=== PATIENT | male | born 1985 | race Caucasian/White ===

== ENCOUNTER 2018-11-25 16:23 | Emergency (ER) | payer MEDICARE, OTHER ==
[~2018-11-25] VITALS: Ht 185.4 cm; Wt 86.2 kg
[~2018-11-25 16:23] MED LIST: ALBU90OI INH; Augmentin 875-1 EACH PO; CITA20 PO; Colace100 MG PO; ERYT1OIN LEFTEYE; Inderal 20 mg T20 MG PO; LISI5 PO; LOVA20 PO; METO25ER PO; Monodox100 MG PO; OMEP40CA12 PO; Preparation H C26 GM RC; Prozac40 MG PO; RANI150 PO; SPACE CHAMBER1 EACH MC; SUCR1 PO; Zofran4 MG PO
[2018-11-25 18:00] LABS: Calcium, Ionized (POC) 1.22 mmol/L (1.10-1.46); Chloride (POC) 100 mmol/L (98-108); Creatinine (POC) 0.9 mg/dL (0.8-1.3); Glucose (ISTAT POC) 98 mg/dL (70-99); Hemoglobin (POC) 15.6 g/dL (13.5-17.5); Potassium (POC) 3.9 mmol/L (3.5-5.5); Sodium (POC) 139 mmol/L (135-148); Total CO2 (POC) 28 mmol/L (21-32)
[2018-11-25] MEDS ORDERED: KETO10 PO (18:43)
[2018-11-25] MEDS ORDERED: ONDA4ODT MM (18:43)
== END 2018-11-25 19:00 | disposition home or self-care (01) ==
LOC: ER 16:23
PROVIDERS: Physician Assistant
DX: R51 Headache (principal); I10 Essential (primary) hypertension; K21.9 Gastro-esophageal reflux disease without esophagitis; F90.9 Attention-deficit hyperactivity disorder, unspecified type; E78.5 Hyperlipidemia, unspecified; Z88.8 Allergy status to other drugs, medicaments and biological substances; Z88.2 Allergy status to sulfonamides; Z79.899 Other long term (current) drug therapy
CPT/HCPCS: 36415; 80047; 82947; 85014; 96372; 99283-25; J1885

== ENCOUNTER 2020-11-05 18:13 | Emergency (ER) | payer OTHER ==
[~2020-11-05] VITALS: Ht 185.4 cm; Wt 79.4 kg
[~2020-11-05 18:13] MED LIST changes: +KETO10 PO; +ONDA4ODT MM
[2020-11-05] MEDS ORDERED: ONDA4ODT MM (19:51)
== END 2020-11-05 19:55 | disposition home or self-care (01) ==
LOC: ER 18:13
DX: U07.1 COVID-19 (principal); R11.0 Nausea; I10 Essential (primary) hypertension; E78.5 Hyperlipidemia, unspecified; Z88.8 Allergy status to other drugs, medicaments and biological substances; Z88.2 Allergy status to sulfonamides; Z79.899 Other long term (current) drug therapy
CPT/HCPCS: 99282

== ENCOUNTER 2021-10-31 16:45 | Emergency (ER) | payer BC, OTHER ==
[~2021-10-31] VITALS: Ht 185.4 cm; Wt 81.7 kg
[2021-10-31 18:00] LABS: BASOPHILS ABSOLUTE AUTO 0.06 K/mm3 (0.00-0.23); BASOPHILS PERCENT AUTO 1 % (0-2); EOSINOPHILS ABSOLUTE AUTO 0.08 K/mm3 (0.00-0.68); EOSINOPHILS PERCENT AUTO 1 % (0-6); Hematocrit 46.8 % (37.0-53.0); Hemoglobin 15.8 g/dL (13.5-17.5); IMMATURE GRAN ABSOLUTE AUTO 0.08 K/mm3 (0.00-0.10); IMMATURE GRAN PERCENT AUTO 1 % (0-1); LYMPHOCYTES PERCENT AUTO 9 % (21-46); MONOCYTES ABSOLUTE AUTO 0.56 K/mm3 (0.16-1.47); MONOCYTES PERCENT AUTO 5 % (4-13); Mean Corpuscular HGB 28.7 pg (26.0-34.0); Mean Corpuscular HGB Conc 33.8 g/dL (31.5-36.5); Mean Corpuscular Volume 85 fL (80-100); Mean Platelet Volume 8.9 fL (9.1-12.4); NEUTROPHILS ABSOLUTE AUTO 9.19 K/mm3 (1.96-9.15); NEUTROPHILS PERCENT AUTO 84 % (41-73); Platelet Count 213 K/mm3 (150-400); RDW Coefficient Variation 12.9 % (11.7-14.2); RDW Standard Deviation 39.8 fL (35.1-46.3); Red Blood Cell Count 5.51 M/mm3 (4.30-5.90); White Blood Cell Count 10.97 K/mm3 (4.00-11.30)
[2021-10-31 18:06] LABS: Albumin, Blood 4.6 g/dL (3.4-5.0); Albumin/Globulin Ratio 1.4 (0.8-1.8); Bilirubin, Total 0.5 mg/dL (0.1-1.0); Bun/Creatinine Ratio 16.3 (12.0-20.0); Calcium, Blood 10.3 mg/dL (8.5-10.1); Creatinine, Blood 0.92 mg/dL (0.60-1.20); Globulin, Blood 3.3 g/dL (2.2-4.0); Potassium, Blood 4.4 mmol/L (3.5-5.5); Total Protein, Blood 7.9 g/dL (6.4-8.2)
[2021-10-31] MEDS ORDERED: ONDA4ODT MM (20:25)
== END 2021-10-31 20:30 | disposition home or self-care (01) ==
LOC: ER 16:45
PROVIDERS: Physician Assistant
DX: R42 Dizziness and giddiness (principal); R10.9 Unspecified abdominal pain; R51.9 Headache, unspecified; K21.9 Gastro-esophageal reflux disease without esophagitis; I10 Essential (primary) hypertension; E78.5 Hyperlipidemia, unspecified; Z88.2 Allergy status to sulfonamides; Z88.8 Allergy status to other drugs, medicaments and biological substances; Z79.899 Other long term (current) drug therapy
CPT/HCPCS: 36415; 80053; 81000; 82947; 85025; 93005; 93010; 99284-25; A9270

== ENCOUNTER 2022-01-24 14:34 | Emergency (ER) | payer BC, OTHER ==
[~2022-01-24] VITALS: Ht 185.4 cm; Wt 81.7 kg
[2022-01-24] MEDS ORDERED: IBUP800 PO (15:00)
== END 2022-01-24 15:05 | disposition home or self-care (01) ==
LOC: ER 14:34
DX: S20.211A Contusion of right front wall of thorax, initial encounter (principal); W22.8XXA Striking against or struck by other objects, initial encounter; K21.9 Gastro-esophageal reflux disease without esophagitis; I10 Essential (primary) hypertension; E78.5 Hyperlipidemia, unspecified; Z88.8 Allergy status to other drugs, medicaments and biological substances; Z88.2 Allergy status to sulfonamides; Z79.899 Other long term (current) drug therapy
CPT/HCPCS: 71046

== ENCOUNTER 2022-02-12 14:42 | Emergency (ER) | payer BC, OTHER ==
[~2022-02-12] VITALS: Ht 185.4 cm; Wt 72.6 kg
[~2022-02-12 14:42] MED LIST changes: +IBUP800 PO
== END 2022-02-12 17:55 | disposition home or self-care (01) ==
LOC: ER 14:42
DX: S61.231A Puncture wound without foreign body of left index finger without damage to nail, initial encounter (principal); K21.9 Gastro-esophageal reflux disease without esophagitis; I10 Essential (primary) hypertension; W22.8XXA Striking against or struck by other objects, initial encounter; Z79.899 Other long term (current) drug therapy; Z88.2 Allergy status to sulfonamides; Z88.8 Allergy status to other drugs, medicaments and biological substances
CPT/HCPCS: 73140

== ENCOUNTER 2023-03-13 23:43 | Emergency (ER) | payer BC, OTHER ==
[~2023-03-13] VITALS: Ht 185.4 cm; Wt 92.5 kg
[2023-03-14 01:47] VITALS: BP 159/104
== END 2023-03-14 02:02 | disposition home or self-care (01) ==
LOC: ER 23:43
DX: K59.00 Constipation, unspecified (principal); R68.83 Chills (without fever); Z88.8 Allergy status to other drugs, medicaments and biological substances; Z88.2 Allergy status to sulfonamides; Z79.899 Other long term (current) drug therapy; K21.9 Gastro-esophageal reflux disease without esophagitis; G43.909 Migraine, unspecified, not intractable, without status migrainosus; I10 Essential (primary) hypertension; E78.5 Hyperlipidemia, unspecified
CPT/HCPCS: 99283; A9270

== ENCOUNTER 2023-05-04 07:49 | Emergency (ER) | payer OTHER ==
[~2023-05-04] VITALS: Ht 185.4 cm; Wt 93.0 kg
[2023-05-04 08:04] VITALS: BP 166/102
[2023-05-04] MEDS ORDERED: Ondansetron HCl 2 MG / ML 2ML Vial IV ONE (08:05)
[2023-05-04] MEDS ORDERED: Ondansetron 4 MG SoluTab SL ONE (08:10)
[2023-05-04] MEDS ORDERED: ONDA4ODT MM (09:40)
== END 2023-05-04 09:47 | disposition home or self-care (01) ==
LOC: ER 07:49
DX: R11.2 Nausea with vomiting, unspecified (principal); R19.7 Diarrhea, unspecified; E86.0 Dehydration; K21.9 Gastro-esophageal reflux disease without esophagitis; I10 Essential (primary) hypertension; E78.5 Hyperlipidemia, unspecified; Z79.899 Other long term (current) drug therapy; Z88.8 Allergy status to other drugs, medicaments and biological substances; Z88.2 Allergy status to sulfonamides
CPT/HCPCS: 99283; A9270

== ENCOUNTER 2023-12-24 19:06 | Emergency (ER) | payer OTHER ==
[~2023-12-24] VITALS: Ht 185.4 cm; Wt 87.1 kg
[~2023-12-24 19:06] MED LIST changes: +BENZ100A PO
[2023-12-24 19:32] VITALS: BP 170/94
== END 2023-12-24 20:49 | disposition home or self-care (01) ==
LOC: ER 19:06
DX: M54.50 Low back pain, unspecified (principal); M79.671 Pain in right foot; M25.571 Pain in right ankle and joints of right foot; K21.9 Gastro-esophageal reflux disease without esophagitis; I10 Essential (primary) hypertension; E78.5 Hyperlipidemia, unspecified; G43.909 Migraine, unspecified, not intractable, without status migrainosus; Z88.2 Allergy status to sulfonamides; Z88.5 Allergy status to narcotic agent; Z88.8 Allergy status to other drugs, medicaments and biological substances; Z79.899 Other long term (current) drug therapy; W11.XXXA Fall on and from ladder, initial encounter
CPT/HCPCS: 72100; 73610; 99283-25